=== PATIENT | male | born 1990 | race Caucasian/White ===

== ENCOUNTER 2016-12-16 13:18 | Day surgery (SDC) | payer OTHER ==
--- NOTE | ~2016-12-16 | OP ---
Record Of Operation [facility] [address] [place]. [address] NAME: GALDINO PAGE : 88 STATUS : [facility]#: [id number] AGE: 26 ADM/REG DATE : 12/16/16 MR#: [id number] REPORT SERV DATE: 12/16/16 DICTATED BY: MILAN DENG III DATE: 12/16/16 REPORT STATUS : Draft TRANSCRIBED BY: MODL DATE: 12/16/16 DATE OF PROCEDURE: 12/16/2016 PREOPERATIVE DIAGNOSIS: Right ureteral calculus. POSTOPERATIVE DIAGNOSIS: Right ureteral calculus. PROCEDURE: Cystoscopy, right retrograde pyelogram, right ureteroscopy, and basket extraction of stone with stent placement. SURGEON: Milan Deng M.D. ANESTHESIA: General. SPECIMEN: Stone. BLOOD LOSS: None. INDICATION: Mr. Page is a 26-year-old white male with a known right distal ureteral calculus. He has been unable to pass the stone. Consent is obtained for the above procedure. PROCEDURE IN DETAIL: After consent was obtained, the patient was identified, taken to the OR and put to sleep. He was positioned in the low lithotomy position and prepped and draped in the usual fashion. The 22-Yemeni cystoscope was made ready and advanced along the course of urethra and into the bladder. Anterior urethra and prostatic urethra appeared normal. The bladder appeared normal as well. A cone-tipped ureteral catheter was flushed and inserted to the right ureteral orifice. Retrograde pyelogram was obtained demonstrating a filling defect in the distal ureter consistent with a stone. A Glidewire was passed up the right ureter. A ureteral access sheath obturator was then used to dilate the transmural ureter. The 6 degree rigid ureteroscope was made ready and advanced to the ureter. The stone was visualized. It appears small to remove intact, therefore, grasped with a nitinol. Basket was pulled out without undue force and passed off as specimen. The ureter was then reinspected up to the level of the vessels. No other stones or fragments were noted. The cystoscope was then reinserted to the bladder. A cone-tipped ureteral catheter was then used to inject contrast into the upper collecting system to demonstrate the renal pelvis. The guidewire was then backloaded through the cystoscope, and a 6 x 26 cm double-J ureteral stent was advanced over the wire. When in position, the wire was removed. The stent was noted to coil in the renal pelvis as well as the bladder. The bladder was then drained. The scope removed. The string was left attached and was secured to the penis. The patient was awakened and taken to recovery in stable condition. PH/MODL Record Of [place] [address] [address] NAME: GALDINO PAGE : 88 STATUS : [facility] PAT#: [id number] AGE: 26 ADM/REG DATE : 12/16/16 MR#: [id number] REPORT SERV DATE: 12/16/16 DICTATED BY: MILAN DENG III DATE: 12/16/16 REPORT STATUS : Draft TRANSCRIBED BY: MODL DATE: 12/16/16 Milan Deng III, M.D. / [id number] CC: Milan Deng III, M.D.
[~2016-12-16 13:18] MED LIST: NORCO1 TAB PO
[2016-12-20 18:46] LABS: STONE COMPOSITION TWO DNR (())
== END 2016-12-16 17:55 | disposition home or self-care (01) ==
LOC: SDC 13:18
PROVIDERS: Urology
PROC: 0T768DZ Dilation of Right Ureter with Intraluminal Device, Via Natural or Artificial Opening Endoscopic (ICD-10-PCS; 2016-12-16)
PROC: 0TC68ZZ Extirpation of Matter from Right Ureter, Via Natural or Artificial Opening Endoscopic (ICD-10-PCS; principal; 2016-12-16 15:15)
DX: N20.1 Calculus of ureter (principal); Z87.442 Personal history of urinary calculi; Z98.890 Other specified postprocedural states; Z79.891 Long term (current) use of opiate analgesic
CPT/HCPCS: 74420; 82365; A9270-GY; C1769; C1894; C2617; J2250; J2405; J3010; Q9967